=== PATIENT | female | born 1970 | race Caucasian/White ===

== ENCOUNTER 2025-02-11 06:22 | Day surgery (SDC) | payer OTHER, SELFPAY ==
[2025-02-03 11:05] LABS: Hematocrit 40.6 % (37.0-47.0); Hemoglobin 13.7 g/dL (12.0-16.0); Mean Corp Hgb Conc. 33.7 g/dL (33.0-37.0); Mean Corpuscular Volume 86.2 fL (81.0-99.0); Nucleated Red Blood Cells % 0 %; Platelet Count 188 10^3/uL (130-400); Red Cell Dist. Width 11.7 % (11.5-14.5)
[2025-02-03 13:47] VITALS: BMI 31.8
[2025-02-11] VITALS (9 sets, daily range): BP systolic 107–136; BP diastolic 69–88; BMI 31.8
[2025-02-11] MEDS: NORMOSOL-R/PLASMALYTE-A 1000 IV (10:54)
[2025-02-11] MEDS: VIBRAMYCIN 260 MG IV (11:36)
== END 2025-02-11 14:33 | disposition home or self-care (01) ==
LOC: SDS 06:22
PROVIDERS: ATTENDING PHYSICIAN Obstetrics & Gynecology Gynecology; FAMILY PHYSICIAN Student in an Organized Health Care Education/Training Program
DX: N84.0 Polyp of corpus uteri (principal); N84.1 Polyp of cervix uteri; N92.0 Excessive and frequent menstruation with regular cycle
CPT/HCPCS: 58558; 36415; 85025; 88305; 93005